=== PATIENT | male | born 1990 | race Caucasian/White ===

== ENCOUNTER 2019-05-07 07:04 | Day surgery (SDC) | payer OTHER ==
[~2019-05-07] VITALS: Ht 172.7 cm; Wt 81.6 kg
[2019-05-07 10:18] LABS: HEMATOCRIT 48.8 % (42.0-52.0); HEMOGLOBIN 16.7 g/dL (14.0-18.0); MEAN CORPUSCULAR HEMOGLOBIN 31.6 pg (28.0-32.0); MEAN CORPUSCULAR VOLUME 92.7 fL (80.0-94.0); PLATELET 213 x1000/uL (130-400); RED BLOOD CELL COUNT 5.27 mill/uL (4.7-6.1); RED CELL DISTRIBUTION WIDTH 13.3 % (11.6-14.6)
[2019-05-07 10:22] LABS: CHLORIDE 101 mEq/L (98-107)
[2019-05-07 10:26] LABS: PROTHROMBIN TIME 10.6 sec (9.6-11.0)
[2019-05-07] MEDS ORDERED: LORA1TAB PO (11:55)
[2019-05-07] MEDS ORDERED: LIDOCAINE HCL 1% 20ML VIAL (Pyxis) INJ ONE (12:37)
[2019-05-07] MEDS ORDERED: HYDROMORPHONE HCL/PF 2MG/ML CPJ IV PRN (12:45)
[2019-05-07] MEDS ORDERED: MEPERIDINE HCL/PF 25MG/ML CPJ IV PRN (12:45)
[2019-05-07] MEDS ORDERED: ONDANSETRON HCL 4MG/2ML INJ IV PRN (12:45)
[2019-05-07] MEDS ORDERED: LABETALOL 5MG/ML SYR 20 MG/4 ML SYRINGE IV PRN (12:45)
[2019-05-07] MEDS ORDERED: PROPOFOL 10MG/ML 100ML 0 ML IV ONE (13:25)
[2019-05-07] MEDS ORDERED: DOPAMINE 400MG/250ML PREMIX 250 ML IV ONE (13:54)
[2019-05-07] MEDS ORDERED: DOBUTAMINE 250MG PREMIX 250 ML IV ONE (13:57)
[2019-05-07] MEDS ORDERED: PROPOFOL 10MG/ML 100ML 100 ML IV ONE (14:19)
[2019-05-07] MEDS ORDERED: HEPARIN SODIUM 1,000 UNIT/1ML VIAL IV ONE (15:06)
[2019-05-07 16:12] VITALS: BP 136/84
== END 2019-05-07 18:00 | disposition home or self-care (01) ==
LOC: CCL 07:04
PROVIDERS: ATTEND Internal Medicine Clinical Cardiac Electrophysiology
DX: I47.9 Paroxysmal tachycardia, unspecified (principal); Z79.899 Other long term (current) drug therapy; Z88.8 Allergy status to other drugs, medicaments and biological substances
CPT/HCPCS: 36415; 80048; 85027; 85610; 93005; 93621; 93623; 93653; C1730; C1731; C1893; J1170; J1250; J1265; J1644; J2704; J3490; 93620